=== PATIENT | female | born 1955 | race Caucasian/White ===

== ENCOUNTER 2016-12-29 10:40 | Emergency (ER) | payer MEDICAID ==
[~2016-12-29] VITALS: Ht 160 cm; Wt 81.6 kg
[2016-12-29] MEDS ORDERED: [UNRECOGNIZED DRUG - CODE] PO (10:56)
[2016-12-29 11:57] LABS: BASOPHILS # (AUTO) 0.1 K/uL (0.0-8.0); BASOPHILS % (AUTO) 0.8 % (0.0-2.0); EOSINOPHILS # (AUTO) 0.2 K/uL (0.0-0.7); EOSINOPHILS % (AUTO) 2.4 % (0.0-7.0); HEMATOCRIT 42.3 % (31.2-41.9); HEMOGLOBIN 14.9 g/dL (10.9-14.3); LYMPHOCYTES # (AUTO) 3.4 K/uL (20.0-40.0); MEAN CORPUSCULAR HEMOGLOBIN 31.1 uug (24.7-32.8); MEAN CORPUSCULAR HGB CONC 35 g/dL (32.3-35.6); MONOCYTES # (AUTO) 0.6 K/uL (2.0-10.0); MONOCYTES % (AUTO) 5.7 % (0.0-11.0); NEUTROPHILS # (AUTO) 5.7 K/uL (1.8-8.9); NEUTROPHILS % (AUTO) 57.1 % (38.5-71.5); PLATELET COUNT (AUTO) 237 K/uL (179-408); RED BLOOD CELL COUNT(AUTO) 4.81 MIL/uL (3.63-4.92)
[2016-12-29 12:13] LABS: BILIRUBIN,DIRECT 0.1 mg/dL (0.0-0.2); BILIRUBIN,TOTAL 0.5 mg/dL (0.2-1.0); CREATININE 0.7 mg/dL (0.6-1.3); POTASSIUM 3.9 mmol/L (3.5-5.1); TOTAL PROTEIN, SERUM 8.4 g/dL (6.4-8.2)
--- NOTE | 2016-12-29 13:05 | NUR ---
Patient discharged to home in stable conditon with family. Written and verbal after care instructions given. Patient verbalizes understanding of instructions. Stressed follow up with pmd or return to ER for worsening s/s.
== END 2016-12-29 13:08 | disposition home or self-care (01) ==
LOC: ER 10:40
DX: R42 Dizziness and giddiness (principal); R51 Headache; E03.9 Hypothyroidism, unspecified
CPT/HCPCS: 36415; 70030-TC; 70450; 71010; 85025; 85730; 93005; A4663; J7512

== ENCOUNTER 2017-03-20 09:05 | Emergency (ER) | payer MEDICAID, OTHER ==
[~2017-03-20] VITALS: Ht 154.9 cm; Wt 84.0 kg
[~2017-03-20 09:05] MED LIST: [UNRECOGNIZED DRUG - CODE] PO
[2017-03-20 10:04] LABS: BASOPHILS # (AUTO) 0.1 K/uL (0.0-8.0); BASOPHILS % (AUTO) 1.1 % (0.0-2.0); EOSINOPHILS # (AUTO) 0.3 K/uL (0.0-0.7); EOSINOPHILS % (AUTO) 3.1 % (0.0-7.0); HEMOGLOBIN 13.9 g/dL (10.9-14.3); LYMPHOCYTES # (AUTO) 2.7 K/uL (20.0-40.0); LYMPHOCYTES % (AUTO) 32.2 % (20.5-51.5); MEAN CORPUSCULAR HEMOGLOBIN 30.9 uug (24.7-32.8); MEAN CORPUSCULAR HGB CONC 35 g/dL (32.3-35.6); MEAN CORPUSCULAR VOLUME 88.9 fL (75.5-95.3); MONOCYTES # (AUTO) 0.4 K/uL (2.0-10.0); MONOCYTES % (AUTO) 4.4 % (0.0-11.0); NEUTROPHILS % (AUTO) 59.2 % (38.5-71.5); PLATELET COUNT (AUTO) 222 K/uL (179-408); WHITE BLOOD COUNT (AUTO) 8.4 K/uL (3.8-11.8)
[2017-03-20 10:05] LABS: CREATININE 0.8 mg/dL (0.6-1.3); POTASSIUM 3.9 mmol/L (3.5-5.1)
--- NOTE | 2017-03-20 10:11 | NUR ---
ekg/cxr/labs/urine sent-completed. pt positioned for comfort.
[2017-03-20 10:12] LABS: *BILIRUBIN,URIN NEGATIVE (NEGATIVE); *BLOOD, URINE 1+ (NEGATIVE); *CLARITY,URINE CLEAR (CLEAR); *COLOR,URINE YELLOW (YELLOW); *KETONES,URINE NEGATIVE (NEGATIVE); *PROTEIN,URINE NEGATIVE (NEGATIVE); *UROBILINOGEN,URINE 0.2 E.U./dl (NORMAL); LEUKOCYTE ESTERASE ,URINE 1+ (NEGATIVE); NITRITE, URINE NEGATIVE (NEGATIVE); PH,URINE 5.5 (5.0-8.0); UGLUCOSE NEGATIVE (NEGATIVE)
[2017-03-20 10:16] LABS: BILIRUBIN,TOTAL 0.4 mg/dL (0.2-1.0)
[2017-03-20 10:17] LABS: BILIRUBIN,DIRECT 0.1 mg/dL (0.0-0.2)
[2017-03-20 10:18] LABS: TOTAL PROTEIN, SERUM 7.7 g/dL (6.4-8.2)
[2017-03-20 10:20] LABS: BACTERIA,URINE FEW /HPF (NONE SEEN); SQUAMOUS EPITHELIAL CELL,UR FEW /HPF (NONE SEEN)
[2017-03-20 10:21] LABS: MUCUS,URINE FEW /LPF (0-FEW); RENAL EPITHELIAL CELLS,URINE FEW /LPF (NONE SEEN)
--- NOTE | 2017-03-20 11:22 | NUR ---
Patient discharged to home in stable conditon. Written and verbal after care instructions, rx x3 given in sami. Patient verbalizes understanding of instructions.Ambulated w/o diff/took all belongings.
[2017-03-20 11:27] VITALS: BP 150/85
== END 2017-03-20 11:20 | disposition home or self-care (01) ==
LOC: ER 09:05
DX: K64.4 Residual hemorrhoidal skin tags (principal); N39.0 Urinary tract infection, site not specified; E03.9 Hypothyroidism, unspecified
CPT/HCPCS: 36415; 74020; 84443; 85025; 93005; A4663

== ENCOUNTER 2017-08-13 12:04 | Inpatient (IN) | payer MEDICAID, OTHER ==
[~2017-08-13] VITALS: Ht 152.4 cm; Wt 83.0 kg
[2017-08-13 12:41] LABS: BASOPHILS # (AUTO) 0.1 K/uL (0.0-8.0); BASOPHILS % (AUTO) 0.7 % (0.0-2.0); EOSINOPHILS # (AUTO) 0.3 K/uL (0.0-0.7); EOSINOPHILS % (AUTO) 3.4 % (0.0-7.0); HEMATOCRIT 38.1 % (31.2-41.9); HEMOGLOBIN 13.2 g/dL (10.9-14.3); LYMPHOCYTES # (AUTO) 3.1 K/uL (20.0-40.0); LYMPHOCYTES % (AUTO) 35.6 % (20.5-51.5); MEAN CORPUSCULAR HEMOGLOBIN 30.7 uug (24.7-32.8); MEAN CORPUSCULAR HGB CONC 35 g/dL (32.3-35.6); MEAN CORPUSCULAR VOLUME 88.3 fL (75.5-95.3); MONOCYTES # (AUTO) 0.5 K/uL (2.0-10.0); NEUTROPHILS # (AUTO) 4.8 K/uL (1.8-8.9); NEUTROPHILS % (AUTO) 54.3 % (38.5-71.5); PLATELET COUNT (AUTO) 230 K/uL (179-408); RED BLOOD CELL COUNT(AUTO) 4.32 MIL/uL (3.63-4.92); WHITE BLOOD COUNT (AUTO) 8.8 K/uL (3.8-11.8)
[2017-08-13 12:43] LABS: CREATININE 0.8 mg/dL (0.6-1.3); POTASSIUM 3.8 mmol/L (3.5-5.1)
[2017-08-13 12:55] LABS: BILIRUBIN,DIRECT 0.1 mg/dL (0.0-0.2); BILIRUBIN,TOTAL 0.4 mg/dL (0.2-1.0); TOTAL PROTEIN, SERUM 7.7 g/dL (6.4-8.2)
[2017-08-13] MEDS ORDERED: PANTOPRAZOLE SODIUM 40 MG TABLET.DR PO ONE ×2 (13:30→14:25)
[2017-08-13] MEDS ORDERED: ASPIRIN 325 MG TABLET PO ONE (13:30)
[2017-08-13] MEDS ORDERED: ASPIRIN 325 MG TABLET ONE (14:31)
--- NOTE | 2017-08-13 14:44 | NUR ---
MSE COMPLETED, MEDS ADMIN, PT TRANSFERED TO RM 225, SBAR REPORT TO ALAYNA FRANK. BELONGINGS LIST DONE.
[2017-08-13 15:05] VITALS: BP 160/87
[2017-08-13] MEDS ORDERED: ONDANSETRON 4 MG/2 ML VIAL IV PRN (16:45)
[2017-08-13] MEDS ORDERED: ACETAMINOPHEN 325 MG TABLET PO PRN (16:45)
[2017-08-13] MEDS ORDERED: MAGNESIUM HYDROXIDE 30 ML LIQUID UDC PO PRN (16:45)
[2017-08-13] MEDS ORDERED: HYDROCODONE/APAP 5-325MG TABLET PO PRN (16:45)
[2017-08-13] MEDS ORDERED: ZOLPIDEM 5 MG TABLET PO PRN (16:45)
--- NOTE | 2017-08-13 17:56 | NUR ---
PATIENT BEEN ADMITTED BY DR. SOLIS FOR CHEST PAIN. NO COMPLAINS OF PAIN DURING MY SHIFT, ONLY DISCOMFORT OF THE LATERAL PART OF THE BOTH BREAST. V/S WNL. SKIN IS INTACT. AMBULATORY. BANK APPRAISER ON PLACED. PATIENT IS ON BED HAVING DINNER. WILL CONTINUE MONITORING.
--- NOTE | 2017-08-13 19:30 | NUR ---
RECEIVED PATIENT IN BED ALERT ORIENTED, NO SOB NO CHEST PAIN, CONTINENT OF BOWEL AND BLADDER, CALL LIGHT WITHIN REACH.
[2017-08-13 20:00] VITALS: BP 139/69
--- NOTE | 2017-08-13 21:00 | NUR ---
PATIENT RYTHM SINUS RYTHM ON 60'S. CONT TO MONITOR.
[2017-08-14] VITALS: BP 130/55
[2017-08-14 04:00] VITALS: BP 126/52
[2017-08-14] MEDS: PANTOPRAZOLE SODIUM 40 MG TABLET.DR PO SCH (05:46)
[2017-08-14 06:53] LABS: BASOPHILS # (AUTO) 0.1 K/uL (0.0-8.0); BASOPHILS % (AUTO) 0.8 % (0.0-2.0); EOSINOPHILS # (AUTO) 0.3 K/uL (0.0-0.7); EOSINOPHILS % (AUTO) 3.7 % (0.0-7.0); HEMATOCRIT 36.9 % (31.2-41.9); LYMPHOCYTES % (AUTO) 34.9 % (20.5-51.5); MEAN CORPUSCULAR HEMOGLOBIN 30.8 uug (24.7-32.8); MEAN CORPUSCULAR HGB CONC 35 g/dL (32.3-35.6); MEAN CORPUSCULAR VOLUME 87.2 fL (75.5-95.3); MONOCYTES # (AUTO) 0.4 K/uL (2.0-10.0); MONOCYTES % (AUTO) 4.8 % (0.0-11.0); NEUTROPHILS # (AUTO) 4.7 K/uL (1.8-8.9); NEUTROPHILS % (AUTO) 55.8 % (38.5-71.5); PLATELET COUNT (AUTO) 208 K/uL (179-408); RED BLOOD CELL COUNT(AUTO) 4.23 MIL/uL (3.63-4.92); WHITE BLOOD COUNT (AUTO) 8.5 K/uL (3.8-11.8)
[2017-08-14] MEDS ORDERED: LEVOTHYROXINE SODIUM 175 MCG TABLET PO SCH (07:00)
[2017-08-14 07:12] LABS: BILIRUBIN,TOTAL 0.4 mg/dL (0.2-1.0); CREATININE 0.7 mg/dL (0.6-1.3); MAGNESIUM 1.8 mg/dL (1.8-2.4); PHOSPHOROUS 3.1 mg/dL (2.5-4.9); POTASSIUM 3.5 mmol/L (3.5-5.1); TOTAL PROTEIN, SERUM 7.1 g/dL (6.4-8.2)
[2017-08-14 07:17] LABS: THYROID STIMULATING HORMONE 0.032 mIU/mL (0.358-3.740)
--- NOTE | 2017-08-14 08:00 | NUR ---
AWAKE ALERT MOZAMBICAN SPEAKING ,COOPERATE WELL NO PAIN OR SOB RESTING WELL WITH CALL BUCIO IN REACH
[2017-08-14] MEDS: CYCLOBENZAPRINE HCL 10 MG TABLET PO PRN (08:24)
[2017-08-14] MEDS: ASPIRIN 81 MG TAB.CHEW PO SCH (08:24)
--- NOTE | 2017-08-14 10:00 | NUR ---
X RAY LS DONE AND ECCHO CARDIOGRAM AT BEDSIDE EMORY PROCEDURE WELL
[2017-08-14 11:20] VITALS: BP 121/64
[2017-08-14 15:59] VITALS: BP 116/61
--- NOTE | 2017-08-14 17:00 | NUR ---
STABLE HEMODYNAMIC STATUS PAIN UNDER CONTROL NO ACUTE DISTRESS SAFETY MEASURE PROVIDED CALL LIGHT IN REACH
[2017-08-14 19:00] VITALS: BP 139/57
--- NOTE | 2017-08-14 19:00 | NUR ---
RECEIVED PATIENT IN BED ALERT ORIENTED, SPEAK [place] BUT ABLE TO MAKE NEEDS KNOWN. NO COMPLAIN OF PAIN AT THIS TIME. CALL LIGHT WITHIN REACH.
[2017-08-15] VITALS: BP 151/78
--- NOTE | 2017-08-15 00:30 | NUR ---
RECEIVED REPORT FROM RN. PATIENT IS ASLEEP IN BED. NO S/S OF ANY PAIN OR DISCOMFORT. NO RESP. DISTRESS NOTED. CALL LIGHT IN REACH. ALL NEEDS ATTENDED. WILL CONTINUE TO MONITOR AND ASSESS.
[2017-08-15 05:58] VITALS: BP 126/58
--- NOTE | 2017-08-15 06:05 | NUR ---
PATIENT ASLEEP. EASILY AROUSABLE. DENIES ANY CHEST PAIN OR DISCOMFORT AT THIS TIME. SLEPT WELL. CALL LIGHT IN REACH. WILL CONTINUE TO MONITOR AND ASSESS.
[2017-08-15] MEDS: PANTOPRAZOLE SODIUM 40 MG TABLET.DR PO SCH (06:14)
[2017-08-15] MEDS ORDERED: LEVOTHYROXINE SODIUM 112 MCG TABLET PO SCH (07:00)
[2017-08-15] MEDS ORDERED: LEVOTHYROXINE SODIUM 175 MCG TABLET PO SCH (07:00)
--- NOTE | 2017-08-15 08:00 | NUR ---
AWAKE ALERT COOPERATE WELL NO SOB OR CHEST PAIN RESTING WELL WITH CALL LIGHT IN REACH
[2017-08-15] MEDS: ASPIRIN 81 MG TAB.CHEW PO SCH (08:23)
[2017-08-15] MEDS: CYCLOBENZAPRINE HCL 10 MG TABLET PO PRN (08:23)
--- NOTE | 2017-08-15 11:00 | NUR ---
PACO FRANCIS SEEN PATIENT AND ORDER OK TO DISCHARGE HOME TO DAY WITH PRECRIPTION ,D/C INSTRUCTION GIVEN TO FAMILY AND PATIENT REGARDING NEED TO F/U WITH OWN PMD CALL FOR APPIONTMENT CONTINUE HOME MEDICINE PRECRIPTION /ORDER EDUCATION PK GAVE ,EXPLAINED IN [place] ,VERBALIZES UNDERSTAND AND SIGNS D/C SHEET AND PHAMACY WAS HERE TO EXPLAINED HOME MED PRIOR D/C HOME TODAY HL WAS DISCONTINUE ,CONDITION STABLE
[2017-08-15 11:11] VITALS: BP 122/62
--- NOTE | 2017-08-15 12:30 | NUR ---
D/C HOME WITH HER BELONGING REFUSED ACCU CHECK AND LUNCH STATE WILL EAT AT HOME ACCOMPANIES WITH SON /FAMILY
== END 2017-08-15 12:35 | disposition home or self-care (01) | DRG 206 ==
LOC: ER 12:04 → TELE 14:47 → MED 08-14 17:29
PROVIDERS: ADMIT Internal Medicine; ATTEND Internal Medicine
DX: M94.0 Chondrocostal junction syndrome [Tietze] (principal); E44.0 Moderate protein-calorie malnutrition; E03.9 Hypothyroidism, unspecified; E66.9 Obesity, unspecified; Z68.35 Body mass index [BMI] 35.0-35.9, adult; E78.5 Hyperlipidemia, unspecified; Z79.899 Other long term (current) drug therapy; E11.9 Type 2 diabetes mellitus without complications
CPT/HCPCS: 36415; 70030-TC; 71045; 72050; 83735; 84100; 84443; 85025; 85730; 93005; 93307; A4663

== ENCOUNTER 2018-07-08 10:54 | Emergency (ER) | payer OTHER ==
[~2018-07-08] VITALS: Ht 152.4 cm; Wt 81.6 kg
[2018-07-08] MEDS ORDERED: LISI-607 PO (11:12)
[2018-07-08 11:39] LABS: BASOPHILS # (AUTO) 0.1 K/uL (0.0-8.0); EOSINOPHILS # (AUTO) 0.2 K/uL (0.0-0.7); EOSINOPHILS % (AUTO) 2.7 % (0.0-7.0); HEMATOCRIT 40.7 % (31.2-41.9); HEMOGLOBIN 13.9 g/dL (10.9-14.3); LYMPHOCYTES # (AUTO) 2.9 K/uL (20.0-40.0); LYMPHOCYTES % (AUTO) 36.2 % (20.5-51.5); MEAN CORPUSCULAR HEMOGLOBIN 30.5 uug (24.7-32.8); MEAN CORPUSCULAR HGB CONC 34 g/dL (32.3-35.6); MEAN CORPUSCULAR VOLUME 89.1 fL (75.5-95.3); MONOCYTES # (AUTO) 0.4 K/uL (2.0-10.0); MONOCYTES % (AUTO) 4.7 % (0.0-11.0); NEUTROPHILS # (AUTO) 4.5 K/uL (1.8-8.9); NEUTROPHILS % (AUTO) 55.4 % (38.5-71.5); PLATELET COUNT (AUTO) 236 K/uL (179-408); RED BLOOD CELL COUNT(AUTO) 4.56 MIL/uL (3.63-4.92); WHITE BLOOD COUNT (AUTO) 8.1 K/uL (3.8-11.8)
[2018-07-08 11:47] LABS: CREATININE 0.8 mg/dL (0.6-1.3); POTASSIUM 4.1 mmol/L (3.5-5.1)
[2018-07-08 11:52] LABS: *BILIRUBIN,URIN NEGATIVE (NEGATIVE); *BLOOD, URINE TRACE (NEGATIVE); *CLARITY,URINE CLEAR (CLEAR); *COLOR,URINE LIGHT YELLOW (YELLOW); *KETONES,URINE NEGATIVE (NEGATIVE); *UROBILINOGEN,URINE 0.2 E.U./dl (NORMAL); LEUKOCYTE ESTERASE ,URINE TRACE (NEGATIVE); NITRITE, URINE NEGATIVE (NEGATIVE); PH,URINE 5.5 (5.0-8.0); UGLUCOSE NEGATIVE (NEGATIVE)
[2018-07-08 11:53] LABS: BILIRUBIN,DIRECT 0.1 mg/dL (0.0-0.2); BILIRUBIN,TOTAL 0.5 mg/dL (0.2-1.0); TOTAL PROTEIN, SERUM 8.2 g/dL (6.4-8.2)
[2018-07-08 12:00] LABS: BACTERIA,URINE NONE SEEN /HPF (NONE SEEN); RBC,URINE 0-3 /HPF (0-3); SQUAMOUS EPITHELIAL CELL,UR MODERATE /HPF (NONE SEEN); WBC,URINE 0-3 /HPF (0-3)
--- NOTE | 2018-07-08 12:37 | NUR ---
Patient discharged to home in stable conditon. Written and verbal after care instructions given. Patient verbalizes understanding of instructions.
== END 2018-07-08 12:41 | disposition home or self-care (01) ==
LOC: ER 10:55
DX: M54.40 Lumbago with sciatica, unspecified side (principal); R35.0 Frequency of micturition; R35.8 Other polyuria; E03.9 Hypothyroidism, unspecified; I10 Essential (primary) hypertension; Z79.899 Other long term (current) drug therapy
CPT/HCPCS: 36415; 72100; 83690; 85025; 87086; A4663

== ENCOUNTER 2019-02-20 09:28 | Emergency (ER) | payer OTHER ==
[~2019-02-20] VITALS: Ht 152.4 cm; Wt 80.3 kg
[~2019-02-20 09:28] MED LIST changes: +LISI-607 PO
--- NOTE | 2019-02-20 09:45 | NUR ---
Dr Miranda at the bedside for MSE.
[2019-02-20 09:53] VITALS: BP 139/74
--- NOTE | 2019-02-20 10:00 | NUR ---
Patient discharged to home in stable conditon. Written and verbal after care instructions given. Patient verbalizes understanding of instructions.
== END 2019-02-20 10:04 | disposition home or self-care (01) ==
LOC: ER 09:29
DX: B35.1 Tinea unguium (principal); I10 Essential (primary) hypertension; E03.9 Hypothyroidism, unspecified; Z79.899 Other long term (current) drug therapy
CPT/HCPCS: A4663

== ENCOUNTER 2020-11-13 09:41 | Emergency (ER) | payer MEDICAID, OTHER ==
[~2020-11-13] VITALS: Ht 160 cm; Wt 80.3 kg
[~2020-11-13 09:41] MED LIST changes: -LISI-607 PO; +LISI-782 PO
[2020-11-13] MEDS ORDERED: METOCLOPRAMIDE HCL 10 MG/2 ML VIAL IV ONE (10:15)
[2020-11-13] MEDS ORDERED: ACETAMINOPHEN ES 500 MG TABLET PO ONE (10:15)
[2020-11-13] MEDS ORDERED: IV NORMAL SALINE 1000 ML BAG IV ONE (10:15)
[2020-11-13] MEDS ORDERED: diphenhydrAMINE 50 MG/1 ML VIAL IV ONE (10:15)
[2020-11-13 10:32] LABS: *BILIRUBIN,URIN NEGATIVE (NEGATIVE); *CLARITY,URINE CLEAR (CLEAR); *COLOR,URINE YELLOW (YELLOW); *KETONES,URINE NEGATIVE (NEGATIVE); *UROBILINOGEN,URINE 0.2 E.U./dl (NORMAL); HEMATOCRIT 41.1 % (31.2-41.9); LEUKOCYTE ESTERASE ,URINE TRACE (NEGATIVE); MEAN CORPUSCULAR HEMOGLOBIN 30.2 uug (24.7-32.8); MEAN CORPUSCULAR VOLUME 88.5 fL (75.5-95.3); NITRITE, URINE NEGATIVE (NEGATIVE); PH,URINE 5.5 (5.0-8.0); PLATELET COUNT (AUTO) 226 K/uL (179-408); UGLUCOSE NEGATIVE (NEGATIVE)
[2020-11-13 10:36] LABS: *BLOOD, URINE TRACE (NEGATIVE)
[2020-11-13] MEDS ORDERED: ACETAMINOPHEN ES 500 MG TABLET ONE (10:39)
[2020-11-13] MEDS ORDERED: diphenhydrAMINE 50 MG/1 ML VIAL ONE (10:39)
[2020-11-13] MEDS ORDERED: METOCLOPRAMIDE HCL 10 MG/2 ML VIAL ONE (10:40)
[2020-11-13 10:41] LABS: CREATININE 0.8 mg/dL (0.6-1.3); POTASSIUM 3.6 mmol/L (3.5-5.1)
[2020-11-13 10:52] LABS: BILIRUBIN,DIRECT 0.1 mg/dL (0.0-0.2); BILIRUBIN,TOTAL 0.5 mg/dL (0.2-1.0); PHOSPHOROUS 3.2 mg/dL (2.5-4.9); TOTAL PROTEIN, SERUM 8.3 g/dL (6.4-8.2)
[2020-11-13 10:56] LABS: THYROID STIMULATING HORMONE 0.263 mIU/mL (0.358-3.740)
--- NOTE | 2020-11-13 11:21 | NUR ---
Pt states she is feeling better, pain now 04/11.
[2020-11-13] MEDS ORDERED: NITROFURANTOIN/NITROFURAN MAC 100 MG CAPSULE PO ONE ×2 (12:30→13:00)
[2020-11-13] MEDS ORDERED: LEVO750T46 PO (12:30)
[2020-11-13] MEDS ORDERED: IBUP-1957 PO (12:30)
--- NOTE | 2020-11-13 12:48 | NUR ---
Removed IV intact, site benign, bandaged. Gave pt RX and d/c instructions, pt verbalized understanding. Addendum: 11/13/20 at 1257 by ARACELI translated by staff.
[2020-11-13 13:09] LABS: BACTERIA,URINE FEW /HPF (NONE SEEN); RBC,URINE 0-3 /HPF (0-3); SQUAMOUS EPITHELIAL CELL,UR FEW /HPF (NONE SEEN)
[2020-11-13 13:10] LABS: URINE AMORPHOUS URATE MODERATE /HPF
== END 2020-11-13 13:00 | disposition home or self-care (01) ==
LOC: ER 09:41
DX: N39.0 Urinary tract infection, site not specified (principal); R51.9 Headache, unspecified; M79.10 Myalgia, unspecified site; I70.0 Atherosclerosis of aorta; I11.9 Hypertensive heart disease without heart failure; R73.03 Prediabetes; E03.9 Hypothyroidism, unspecified; E66.9 Obesity, unspecified; Z68.31 Body mass index [BMI] 31.0-31.9, adult; Z79.890 Hormone replacement therapy; Z79.899 Other long term (current) drug therapy
CPT/HCPCS: 36415; 70450; 71046; 80048; 80076; 81001; 83735; 83880; 84100; 84443; 84484; 85025; 85651; 86140; 93005; 96374; 96375; 99285; J1200; J2765; 70030-TC; A4663; A9150; J7030

== ENCOUNTER 2021-05-09 10:21 | Inpatient (IN) | payer MEDICAID ==
[~2021-05-09] VITALS: Ht 152.4 cm; Wt 78.5 kg
[~2021-05-09 10:21] MED LIST changes: +IBUP-1957 PO; +LEVO750T46 PO
[2021-05-09] MEDS ORDERED: PANT40TA2 PO (11:04)
[2021-05-09] MEDS ORDERED: ASPIRIN 81 MG TAB.CHEW PO ONE (11:30)
[2021-05-09 11:42] LABS: HEMATOCRIT 40.1 % (31.2-41.9); MEAN CORPUSCULAR HEMOGLOBIN 30.5 uug (24.7-32.8); MEAN CORPUSCULAR VOLUME 89.2 fL (75.5-95.3); PLATELET COUNT (AUTO) 212 K/uL (179-408)
[2021-05-09] MEDS ORDERED: ASPIRIN 81 MG TAB.CHEW ONE (11:43)
[2021-05-09 11:51] LABS: CREATININE 0.9 mg/dL (0.6-1.3); POTASSIUM 3.8 mmol/L (3.5-5.1)
[2021-05-09 12:03] LABS: BILIRUBIN,TOTAL 0.5 mg/dL (0.2-1.0)
--- NOTE | 2021-05-09 12:10 | NUR ---
Pt resting comfortably in [place]. Denies any pain at this time.
[2021-05-09] MEDS ORDERED: FUROSEMIDE 40 MG/4 ML VIAL IV ONE (12:30)
[2021-05-09] MEDS ORDERED: FUROSEMIDE 40 MG/4 ML VIAL ONE (12:41)
--- NOTE | 2021-05-09 13:05 | NUR ---
Pt aware of plan to admit and agrees to plan. Dr. Diego accepted pt. Will await bed assignment.
[2021-05-09] MEDS ORDERED: HYDR-4209 PO (13:21)
--- NOTE | 2021-05-09 16:40 | NUR ---
Pt to admit to Rm 327. Report given to MONIKA Molina. Will take pt up to Rm soon.
[2021-05-09 17:00] VITALS: BP 127/78
--- NOTE | 2021-05-09 17:00 | NUR ---
Received pt from ER. Pt was brought to ER by daughter in private car for having chest pain, abdominal pain for one week. Admitting dx is new onset CHF. Chest xray revealed cardiomegaly. Pt does not have any signs of nausea vomiting, diarrhea or constipation. Pt is a/o x 4, presenting with normal sinus rhythm at this time. Vitals upon arrival to unit 127/78, HR 71, saturating 95% on room air. Pt does not complain of any pain at this time. Requested dinner tray for pt. No visible wounds. Pt is ambulatory with BRP. Lasix and aspirin given in ER. Plan is to monitor pt and do further cardiac work up. Comfort measures provided, call light within reach. Will continue to monitor. MD aware of pt's arrival to the unit.
[2021-05-09] MEDS ORDERED: ONDANSETRON 4 MG/2 ML VIAL IV PRN (17:45)
[2021-05-09] MEDS ORDERED: ACETAMINOPHEN 325 MG TABLET PO PRN (17:45)
[2021-05-09] MEDS ORDERED: ZOLPIDEM 5 MG TABLET PO PRN (17:45)
[2021-05-09] MEDS ORDERED: REMEDY ESSENTIAL ZINC PASTE 113 GM TP PRN (17:45)
[2021-05-09] MEDS ORDERED: MAGNESIUM HYDROXIDE 30 ML LIQUID UDC PO PRN (17:45)
[2021-05-09 18:00] VITALS: BP 127/78
[2021-05-09] MEDS: ENOXAPARIN SODIUM 40 MG/0.4 ML DISP.SYRIN SQ SCH (18:59)
--- NOTE | 2021-05-09 19:26 | NUR ---
Received patient in room. Able to ambulate ad marcus, BRP. Hong Konger speaking, AAO x4. Denies any chest pain or general discomfort. Telemetry is NSR at 76 BPM. On RA, no SOB. Call light within reach.
[2021-05-09 20:00] VITALS: BP_SYST 109; BP_SYST 144; BP_DIAS 58; BP_DIAS 67
[2021-05-10] VITALS: BP 109/58
[2021-05-10 04:00] VITALS: BP 119/73
[2021-05-10] MEDS: PANTOPRAZOLE SODIUM 40 MG TABLET.DR PO SCH (06:14)
[2021-05-10 06:31] LABS: HEMATOCRIT 44.5 % (31.2-41.9); MEAN CORPUSCULAR HEMOGLOBIN 30.2 uug (24.7-32.8); MEAN CORPUSCULAR VOLUME 89.3 fL (75.5-95.3); PLATELET COUNT (AUTO) 235 K/uL (179-408)
--- NOTE | 2021-05-10 06:40 | NUR ---
Patient slept well. No SOB or chest pain. no significant events, call light within reach.
[2021-05-10 06:59] LABS: CREATININE 0.8 mg/dL (0.6-1.3); MAGNESIUM 2.2 mg/dL (1.8-2.4); PHOSPHOROUS 4.4 mg/dL (2.5-4.9); POTASSIUM 3.7 mmol/L (3.5-5.1)
--- NOTE | 2021-05-10 07:20 | NUR ---
RECEIVED PATIENT IN BED AWAKE ALERT AND ORIENTED DENIES PAIN OR DISCOMFORTS AT THIS TIME ON ROOM AIR WITH NO SHORTNESS OF BREATH AT THIS TIME CALL LIGHT AND PERSONAL BELONGINGS ARE WITHIN EASY REACH AT THIS TIME WILL CONTINUE TO OBSERVE.
[2021-05-10 07:44] LABS: THYROID STIMULATING HORMONE 5.634 mIU/mL (0.358-3.740)
[2021-05-10] MEDS ORDERED: ASPIRIN EC 81 MG TABLET.DR PO SCH (09:00)
[2021-05-10] MEDS ORDERED: FUROSEMIDE 40 MG/4 ML VIAL IV SCH (09:00)
[2021-05-10] MEDS ORDERED: LISI10TA29 PO (10:50)
[2021-05-10 12:00] VITALS: BP 123/74
--- NOTE | 2021-05-10 13:00 | NUR ---
PATIENT CALLED THE NURSE FOR HELP UPON ENTERING THE ROOM SHE IS SITTING UP ON HER BED AND STATED THAT SHE DOES NOT FEEL GOOD STATED THAT SHE FEELS WEAK AND FEELING THAT HER VISION IS NOT GOOD I CHECKED HER VITALS B/P IS 130/82 HR 74 O2 SAT 94 PERCENT ON ROOM AIR VISUAL TEST SHOWS THAT SHE WAS ABLE TO IDENTIFY HOW MANY FINGERS I HAD UP SO I ASKED HER TO STAY IN BED AND RELAX CALLED AND NOTIFIED DR SAHRA MASON STATED WILL BE HERE TO SEE PATIENT.
--- NOTE | 2021-05-10 13:30 | NUR ---
DR SAHRA MASON HERE SEEN PATIENT WITH ORDERS AND NOTED.
[2021-05-10] MEDS: ALPRAZOLAM 0.25 MG TABLET PO PRN (14:10)
[2021-05-10 16:00] VITALS: BP 111/66
[2021-05-10] MEDS: IBUPROFEN 800 MG TABLET PO SCH (16:29)
[2021-05-10] MEDS: COLCHICINE 0.6 MG TABLET PO SCH (16:29)
[2021-05-10] MEDS: ENOXAPARIN SODIUM 40 MG/0.4 ML DISP.SYRIN SQ SCH (17:10)
--- NOTE | 2021-05-10 18:00 | NUR ---
2 D ECHO COMPLETED ORDERED AND THE TECH STATED WILL SEND RESULT TO DR CARL.
--- NOTE | 2021-05-10 19:30 | NUR ---
Received patient in room. Hungarian speaking, AAO x4. Denies any chest pain or general discomfort. Able to recall episode of dizziness and anxiousness and stated she felt relief with xanax. Patient denies any anxiety at this time. Telemetry is NSR. On RA, no SOB. Safety measures continued. Call light within reach.
[2021-05-10 20:43] VITALS: BP 123/49
[2021-05-10] MEDS: ATORVASTATIN 20 MG TABLET PO SCH (20:48)
[2021-05-10] MEDS ORDERED: LISINOPRIL 10 MG TABLET PO SCH (21:00)
[2021-05-11 00:26] VITALS: BP 123/56
[2021-05-11 04:35] VITALS: BP 105/57
[2021-05-11] MEDS: PANTOPRAZOLE SODIUM 40 MG TABLET.DR PO SCH (06:07)
[2021-05-11 06:29] LABS: MEAN CORPUSCULAR HEMOGLOBIN 30.8 uug (24.7-32.8); MEAN CORPUSCULAR VOLUME 89.4 fL (75.5-95.3); PLATELET COUNT (AUTO) 227 K/uL (179-408)
[2021-05-11 06:47] LABS: MAGNESIUM 2.4 mg/dL (1.8-2.4); PHOSPHOROUS 4.2 mg/dL (2.5-4.9); POTASSIUM 3.7 mmol/L (3.5-5.1)
--- NOTE | 2021-05-11 06:55 | NUR ---
No significant events this shift. Slept well. No episodes of anxiety/ SOB / Dizziness/ or chest pain. Strict I+O continued. Patient noted to gain 3lbs- daily weights continued, will endorse to am. Safety measures continued, call light within reach.
[2021-05-11] MEDS ORDERED: LEVOTHYROXINE SODIUM 100 MCG TABLET PO SCH (07:00)
[2021-05-11] MEDS: COLCHICINE 0.6 MG TABLET PO SCH ×2 (08:34→16:52)
[2021-05-11] MEDS: IBUPROFEN 800 MG TABLET PO SCH ×3 (08:34→16:52)
[2021-05-11] MEDS: LISINOPRIL 10 MG TABLET PO SCH (08:34)
[2021-05-11 11:37] VITALS: BP 145/64
[2021-05-11 16:35] VITALS: BP 104/78
[2021-05-11] MEDS: ENOXAPARIN SODIUM 40 MG/0.4 ML DISP.SYRIN SQ SCH (16:52)
[2021-05-11 20:00] VITALS: BP 112/55
[2021-05-11] MEDS: ATORVASTATIN 20 MG TABLET PO SCH (20:35)
--- NOTE | 2021-05-11 21:47 | NUR ---
Received pt awake on bed. On room air with no respiratory distress noted. She is alert and oriented x4, able to make needs known, Tajik speaking. Denies pain and discomfort at this time. NSR on tele. All needs attended. Call light placed within reach. Frequent visual checks done. Will continue to monitor.
[2021-05-12] VITALS: BP 103/64
[2021-05-12 04:00] VITALS: BP 130/75
[2021-05-12] MEDS: LEVOTHYROXINE SODIUM 125 MCG TABLET PO SCH (06:13)
[2021-05-12] MEDS: PANTOPRAZOLE SODIUM 40 MG TABLET.DR PO SCH (06:13)
[2021-05-12 06:38] LABS: HEMATOCRIT 41.2 % (31.2-41.9); MEAN CORPUSCULAR HEMOGLOBIN 30.3 uug (24.7-32.8); MEAN CORPUSCULAR VOLUME 89.7 fL (75.5-95.3); PLATELET COUNT (AUTO) 207 K/uL (179-408)
[2021-05-12 07:20] LABS: MAGNESIUM 2.5 mg/dL (1.8-2.4); PHOSPHOROUS 4.2 mg/dL (2.5-4.9)
[2021-05-12] MEDS: LISINOPRIL 10 MG TABLET PO SCH (08:00)
[2021-05-12] MEDS: IBUPROFEN 800 MG TABLET PO SCH ×3 (08:00→16:10)
[2021-05-12] MEDS: COLCHICINE 0.6 MG TABLET PO SCH ×2 (08:00→16:10)
[2021-05-12 11:08] VITALS: BP 109/76
[2021-05-12 16:04] VITALS: BP 103/61
[2021-05-12] MEDS: ENOXAPARIN SODIUM 40 MG/0.4 ML DISP.SYRIN SQ SCH (17:01)
[2021-05-12 20:00] VITALS: BP 107/57
[2021-05-12] MEDS: ATORVASTATIN 20 MG TABLET PO SCH (20:00)
[2021-05-13] VITALS: BP 105/58
[2021-05-13 05:48] VITALS: BP 115/62
[2021-05-13] MEDS: LEVOTHYROXINE SODIUM 125 MCG TABLET PO SCH (06:08)
[2021-05-13] MEDS: PANTOPRAZOLE SODIUM 40 MG TABLET.DR PO SCH (06:08)
[2021-05-13] MEDS: LISINOPRIL 10 MG TABLET PO SCH (09:14)
[2021-05-13] MEDS: COLCHICINE 0.6 MG TABLET PO SCH ×3 (09:14→17:00)
[2021-05-13] MEDS: IBUPROFEN 800 MG TABLET PO SCH ×3 (09:14→16:35)
[2021-05-13 12:07] VITALS: BP 129/63
[2021-05-13 16:12] VITALS: BP 123/69
[2021-05-13] MEDS: ENOXAPARIN SODIUM 40 MG/0.4 ML DISP.SYRIN SQ SCH (16:41)
--- NOTE | 2021-05-13 18:32 | NUR ---
patient is alert, oriented x4, no sob, ambulatory, stable condition, denied any pain. no events noted during shift
[2021-05-13 20:27] VITALS: BP 145/84
[2021-05-13] MEDS: ATORVASTATIN 20 MG TABLET PO SCH (21:06)
[2021-05-14 00:14] VITALS: BP 107/59
[2021-05-14 04:00] VITALS: BP 113/70
--- NOTE | 2021-05-14 06:06 | NUR ---
Slept throughout the night. No distress noted. Denies chest pain or SOB at this time. Pt very pleasant. Will endorse to day shift.
[2021-05-14] MEDS: LEVOTHYROXINE SODIUM 125 MCG TABLET PO SCH (06:26)
[2021-05-14] MEDS: PANTOPRAZOLE SODIUM 40 MG TABLET.DR PO SCH (06:26)
[2021-05-14] MEDS: COLCHICINE 0.6 MG TABLET PO SCH ×2 (08:24→16:33)
[2021-05-14] MEDS: IBUPROFEN 800 MG TABLET PO SCH ×3 (08:24→16:33)
[2021-05-14] MEDS: LISINOPRIL 10 MG TABLET PO SCH (08:24)
[2021-05-14] MEDS: ALPRAZOLAM 0.25 MG TABLET PO PRN (08:25)
--- NOTE | 2021-05-14 08:25 | NUR ---
AWAKE ALERT AND ORIENTED DENIES PAIN OR DISCOMFORTS AT THIS TIME TELE IS SR ON ROOM AIR WITH NO SHORTNESS OF BREATH AT THIS TIME CALL LIGHTS AND PERSONAL BELONGINGS ARE WITHIN EASY REACH NOT IN DISTRESS WILL CONTINUE TO OBSERVE.
--- NOTE | 2021-05-14 08:28 | NUR ---
STATED FELT ANXIOUS MEDICATED WITH XANAX ORDERED MADE COMFORTABLE WILL CONTINUE TO OBSERVE.
[2021-05-14 11:35] VITALS: BP 130/75
[2021-05-14 16:00] VITALS: BP 138/76
[2021-05-14] MEDS: ENOXAPARIN SODIUM 40 MG/0.4 ML DISP.SYRIN SQ SCH (17:07)
--- NOTE | 2021-05-14 18:45 | NUR ---
NTED TELE READING LOTS OF ARTIFACT UNABLE TO READ REPORT SENT TO DR YEAGER MEDIA MONITOR AWAITING FOR RETURN CALL PATIENT IS ASSYMPTOMATIC EATING AND VISITING WITH HER FAMILY.V/S CHECKED BLOOD PRESSURE IS 140/78 PULSE IS 73 ON ROOM AIR WILL CONTINUE TO OBSERVE.
--- NOTE | 2021-05-14 19:01 | NUR ---
CALLED DR YEAGER WITH ORDERS FOR STAT EKG AND NOTED.
--- NOTE | 2021-05-14 19:31 | NUR ---
Received patient lying in bed. AAOX4, [place] speaking. EKG done, resulted and Dr. Lezama was notified regarding results. Sinus Rhythm on telemonitor. No acute distress noted at this time. IV access patent and intact. Safety precautions initiated. Will continue to monitor.
[2021-05-14] MEDS: ATORVASTATIN 20 MG TABLET PO SCH (20:09)
[2021-05-14] MEDS: METOPROLOL TARTRATE 25 MG TABLET PO SCH (20:09)
[2021-05-14] MEDS: MAGNESIUM SULFATE/D5W 100 ML IV SCH ×2 (20:24→21:57)
[2021-05-14 20:31] VITALS: BP 139/63
--- NOTE | 2021-05-14 20:34 | NUR ---
Received call from Dr. Lezama, ordered for Metoprolol 25mg BID, start VERONICA. and Magnesium IV 2gm. Placed in order, await for pharmacy to verify.
[2021-05-15 00:20] VITALS: BP 139/78
[2021-05-15 04:29] VITALS: BP 105/60
[2021-05-15 06:03] LABS: HEMATOCRIT 40.2 % (31.2-41.9); MEAN CORPUSCULAR HEMOGLOBIN 29.9 uug (24.7-32.8); MEAN CORPUSCULAR VOLUME 90.2 fL (75.5-95.3); PLATELET COUNT (AUTO) 202 K/uL (179-408)
[2021-05-15] MEDS: PANTOPRAZOLE SODIUM 40 MG TABLET.DR PO SCH (06:21)
[2021-05-15] MEDS: LEVOTHYROXINE SODIUM 125 MCG TABLET PO SCH (06:21)
[2021-05-15 06:22] LABS: CREATININE 1.1 mg/dL (0.6-1.3); MAGNESIUM 2.8 mg/dL (1.8-2.4); PHOSPHOROUS 4.2 mg/dL (2.5-4.9); POTASSIUM 4.4 mmol/L (3.5-5.1)
--- NOTE | 2021-05-15 06:28 | NUR ---
Patient slept through the night with no complaints. Sinus rhythm on telemonitor. IV access patent and intact. Compliant with medication regimen. Safety precautions maintained. Will endorse to day shift.
[2021-05-15 08:10] VITALS: BP 104/64
[2021-05-15] MEDS: METOPROLOL TARTRATE 25 MG TABLET PO SCH ×2 (08:37→20:06)
[2021-05-15] MEDS: IBUPROFEN 800 MG TABLET PO SCH ×3 (08:37→17:16)
[2021-05-15] MEDS: COLCHICINE 0.6 MG TABLET PO SCH ×2 (08:37→17:15)
[2021-05-15] MEDS: LISINOPRIL 10 MG TABLET PO SCH (08:37)
--- NOTE | 2021-05-15 09:00 | NUR ---
patient requesting for hospitalist to speak to daughter Frank espinosa notified and daughters info forwarded to him, patient also with c/o abdominal bloating and loose stool x3 days. MD aware. patients abd is soft and nontender at this time, patient states "i feel bloated"
[2021-05-15 16:20] VITALS: BP 111/62
[2021-05-15] MEDS: ENOXAPARIN SODIUM 40 MG/0.4 ML DISP.SYRIN SQ SCH (17:16)
[2021-05-15] MEDS: ATORVASTATIN 20 MG TABLET PO SCH (20:05)
[2021-05-15 20:18] VITALS: BP 118/66
[2021-05-16 00:12] VITALS: BP 101/57
[2021-05-16 04:18] VITALS: BP 106/62
[2021-05-16] MEDS: LEVOTHYROXINE SODIUM 125 MCG TABLET PO SCH (06:07)
[2021-05-16] MEDS: PANTOPRAZOLE SODIUM 40 MG TABLET.DR PO SCH (06:07)
[2021-05-16 06:20] LABS: HEMATOCRIT 40.2 % (31.2-41.9); MEAN CORPUSCULAR HEMOGLOBIN 30.3 uug (24.7-32.8); MEAN CORPUSCULAR VOLUME 89.9 fL (75.5-95.3); PLATELET COUNT (AUTO) 199 K/uL (179-408)
[2021-05-16 06:28] LABS: CREATININE 1.3 mg/dL (0.6-1.3); MAGNESIUM 2.4 mg/dL (1.8-2.4); PHOSPHOROUS 4.5 mg/dL (2.5-4.9); POTASSIUM 4.4 mmol/L (3.5-5.1)
--- NOTE | 2021-05-16 07:30 | NUR ---
received awake and oriented x3 arabic speaking. denies pain at this time. no sob noted. assisted to the bathroom. sr on telemonitor. no signs of infiltration on iv site. safety maintained. kept comfortable.
[2021-05-16 08:00] VITALS: BP 149/68
[2021-05-16] MEDS: LISINOPRIL 10 MG TABLET PO SCH (08:21)
[2021-05-16] MEDS: COLCHICINE 0.6 MG TABLET PO SCH ×2 (08:21→16:36)
[2021-05-16] MEDS: METOPROLOL TARTRATE 25 MG TABLET PO SCH (08:21)
[2021-05-16] MEDS: IBUPROFEN 800 MG TABLET PO SCH ×3 (08:22→16:37)
--- NOTE | 2021-05-16 09:44 | NUR ---
dr. angel notified of episode of controlled v-fib about 20 seconds hr remained at 71 bpm and after the episode went back to normal rhythm. noted pt sitting on the bed talking on the phone. no acute distress. denies pain. no complaints. spoke to dr. angel and ordered to cont monitor for now.
[2021-05-16 09:50] LABS: BILIRUBIN,DIRECT 0.1 mg/dL (0.0-0.2); BILIRUBIN,TOTAL 0.4 mg/dL (0.2-1.0); TOTAL PROTEIN, SERUM 7.8 g/dL (6.4-8.2)
[2021-05-16 12:00] VITALS: BP 149/68
[2021-05-16 13:46] LABS: *BILIRUBIN,URIN NEGATIVE (NEGATIVE); *BLOOD, URINE 1+ (NEGATIVE); *COLOR,URINE YELLOW (YELLOW); *KETONES,URINE NEGATIVE (NEGATIVE); *UROBILINOGEN,URINE 0.2 E.U./dl (NORMAL); LEUKOCYTE ESTERASE ,URINE TRACE (NEGATIVE); NITRITE, URINE NEGATIVE (NEGATIVE); UGLUCOSE NEGATIVE (NEGATIVE)
[2021-05-16] MEDS ORDERED: METOPROLOL TARTRATE 50 MG TABLET PO SCH (14:00)
--- NOTE | 2021-05-16 16:10 | NUR ---
patient for transfer to [facility] room 305. per basilia finnegan molded goods spot picker is at 8pm by apa. communicated to patient and she verbalized understanding. pt belongings list done. obtained home medications from pharmacy and given to patient.
[2021-05-16 17:02] LABS: *CLARITY,URINE HAZY (CLEAR); BACTERIA,URINE FEW /HPF (NONE SEEN); SQUAMOUS EPITHELIAL CELL,UR MODERATE /HPF (NONE SEEN)
[2021-05-16 17:14] VITALS: BP 121/66
[2021-05-16] MEDS: ENOXAPARIN SODIUM 40 MG/0.4 ML DISP.SYRIN SQ SCH (17:45)
--- NOTE | 2021-05-16 17:45 | NUR ---
per fire prevention captain peter white noted and endorsed.
--- NOTE | 2021-05-16 17:58 | NUR ---
dr angel made aware of patient a flutter on the monitor hr went up to 177 bpm then went down. at this time pt hr 63 bpm. no complaints at this time. denies chest pain. pt verbalized she was sneezing but is ok. no new orders received. will cont to monitor.
--- NOTE | 2021-05-16 18:38 | NUR ---
GAVE REPORT TO SHELTON FRANK AT [facility].
--- NOTE | 2021-05-16 20:06 | NUR ---
Pt discharged in stable condition via gurney accompanied by 2 special effects person and son. She is alert and oriented x4, able to make needs known, Slovenian speaking. Discharge instructions and transfer acknowledgment given and signed by patient.
== END 2021-05-16 20:00 | disposition short-term general hospital (02) | DRG 207 ==
LOC: ER 10:21 → TRANSITION 16:05 → TELE3 16:46
PROVIDERS: ADMIT Student in an Organized Health Care Education/Training Program; ATTEND Nurse Practitioner Family
DX: I30.1 Infective pericarditis (principal); I31.4 Cardiac tamponade; I47.2 Ventricular tachycardia; I31.3 Pericardial effusion (noninflammatory); B97.89 Other viral agents as the cause of diseases classified elsewhere; E03.9 Hypothyroidism, unspecified; E66.9 Obesity, unspecified; K64.9 Unspecified hemorrhoids; K29.70 Gastritis, unspecified, without bleeding; Z20.822 Contact with and (suspected) exposure to COVID-19; R42 Dizziness and giddiness; R73.03 Prediabetes; M54.30 Sciatica, unspecified side; R51.9 Headache, unspecified; Z68.33 Body mass index [BMI] 33.0-33.9, adult; Z79.890 Hormone replacement therapy; Z83.3 Family history of diabetes mellitus; I10 Essential (primary) hypertension
CPT/HCPCS: 36415; 70030-TC; 71045; 74018; 83690; 83735; 84100; 84443; 85025; 85651; 86140; 87086; 93005; 93307; A4663; G0378; J1650; J1940; J3475; J7040